=== PATIENT | male | born 1950 | race Caucasian/White ===

== ENCOUNTER 2023-10-16 07:44 | Day surgery (SDC) | payer MEDICARE ==
[2023-10-15 10:14] VITALS: BMI 34.0
[~2023-10-16 07:44] MED LIST: EPINEPHrine 0.3 MG in Ophthalmic Irrigation Solution 500 ML IRR SCH
[2023-10-16] MEDS ORDERED: Cyclopentolate W/ Phenylephrin 5 ML BOT ONE (08:05)
[2023-10-16] MEDS ORDERED: Lidocaine 1% MPF 2 ML VIAL ONE (08:41)
[2023-10-16] MEDS ORDERED: fentaNYL 50 mcg/mL 1 mL Vial ONE (09:11)
[2023-10-16] MEDS ORDERED: Midazolam HCl 2 mg/2 ml Vial ONE (09:11)
[2023-10-16] MEDS ORDERED: PROPOFOL 20 ML ONE (09:11)
[2023-10-16] MEDS ORDERED: Ondansetron PF 4 MG/2 ML Vial ONE (09:28)
[2023-10-16] MEDS ORDERED: Triamcinolone 40 MG/ML VIAL ONE (09:53)
[2023-10-16] MEDS ORDERED: CEFAZOLIN 1 GM VIAL ONE (09:53)
[2023-10-16] MEDS ORDERED: Lidocaine 4% PF 5 ML AMP ONE (09:53)
[2023-10-16] MEDS ORDERED: Bupivacaine 0.75% 10 ML VIAL ONE (09:53)
[2023-10-16] MEDS ORDERED: Maxitrol 0.1% Opth Oint 3.5 GM TUBE ONE (09:53)
[2023-10-16] MEDS ORDERED: Indocyanine Green 25 MG/10 ML VIAL ONE (09:53)
[2023-10-16] MEDS ORDERED: Lidocaine 1% PF 5 ML VIAL ONE (09:53)
== END 2023-10-16 11:08 | disposition home or self-care (01) ==
LOC: SDC 07:44
PROVIDERS: ATTEND Ophthalmology Retina Specialist
PROC: 08T53ZZ Resection of Left Vitreous, Percutaneous Approach (ICD-10-PCS; principal; 2023-10-16)
PROC: 08NF3ZZ Release Left Retina, Percutaneous Approach (ICD-10-PCS; 2023-10-16)
DX: H35.342 Macular cyst, hole, or pseudohole, left eye (principal)
CPT/HCPCS: 67042; J3010; 67025; J0171; J0690; J2250; J2405; J2704; J3301; J3490

== ENCOUNTER 2025-06-23 06:17 | Day surgery (SDC) | payer MEDICARE ==
[2025-06-22 13:41] VITALS: BMI 29.0
[2025-06-23] MEDS ORDERED: Cyclopentolate 1% Opth Drop 2 ML BOT ONE (06:41)
[2025-06-23] MEDS ORDERED: Maxitrol 0.1% Opth Oint 3.5 GM TUBE ONE (08:24)
[2025-06-23] MEDS ORDERED: CEFAZOLIN 1 GM VIAL ONE (08:24)
[2025-06-23] MEDS ORDERED: Lidocaine 4% PF 5 ML AMP ONE (08:24)
[2025-06-23] MEDS ORDERED: Lidocaine 1% PF 5 ML VIAL ONE (08:24)
[2025-06-23] MEDS ORDERED: PROPOFOL 200 MG/20 ML VIAL ONE (08:24)
== END 2025-06-23 09:31 | disposition home or self-care (01) ==
LOC: SDC 06:17
PROVIDERS: ATTEND Ophthalmology Retina Specialist
PROC: 08T43ZZ Resection of Right Vitreous, Percutaneous Approach (ICD-10-PCS; principal; 2025-06-23)
PROC: 08NE3ZZ Release Right Retina, Percutaneous Approach (ICD-10-PCS; 2025-06-23)
DX: H35.371 Puckering of macula, right eye (principal)
CPT/HCPCS: 67041; J0166; J2250; 93005; 93010; J0690; J2704; J3301; J3490